=== PATIENT | male | born 1945 | race Caucasian/White ===

== ENCOUNTER → 2016-11-02 | Outpatient (CLI) | payer MEDICARE ==
--- NOTE | 2016-11-18 11:15 | RSPPFT ---
DATE OF PROCEDURE: 11/04/16 COMMENTS: Spirometry is within normal limits. Post-bronchodilator study demonstrated minimal changes in the FEF 25-75. Lung volumes demonstrated mildly increased RV/TLC ratio indicating hyperinflation and air trapping. Diffusion capacity is normal. Flow volume loops appear unremarkable. IMPRESSION: 1. Essentially normal pulmonary function study. 2. Minimal response to use of bronchodilator which may suggest reactive airways. 3. Normal diffusion capacity.
== END ==
LOC: HRSP 10:25
DX: J44.9 Chronic obstructive pulmonary disease, unspecified (principal)
CPT/HCPCS: 94060; 94726; 94729